=== PATIENT | male | born 1935 | race Caucasian/White ===

== ENCOUNTER 2019-07-15 06:14 | Day surgery (SDC) | payer MEDICARE, OTHER ==
[2019-07-15] MEDS ORDERED: Sodium Chloride 0.9% 1,000 ML IV SCH (07:00)
[2019-07-15] MEDS ORDERED: Propofol 200 MG/20 ML SDV ONE (07:27)
[2019-07-15 08:43] VITALS: BP 150/84; PULSE 62
--- NOTE | 2019-07-15 13:16 | PROC ---
DATE OF PROCEDURE: SURGEON: Umang Garcia MD INDICATION: Mauro is an 83-year-old male who came to the office, said he was having difficult time swallowing, food would stick in his throat and have to wait. He also had mild pain in the epigastric area. The problem has been for several months, more severe in the last 2 to 3 months. He has had no weight loss. The risks and benefits were explained to the patient and he was taken to OR. PROCEDURE IN DETAIL: Anesthesia was given by nurse cmm technician. During the procedure, we used 100 mg of propofol. The Olympus 180 scope was used, was placed into the pharynx and the esophagus without difficulty, and advanced under direct vision. I immediately noted that the distal esophagus had significant esophageal erythema. Pictures were taken of the area. The tube was then advanced into the body of the stomach. The pylorus was identified and advanced into the first and second parts of the duodenum. Upon retraction of the tube, noted no duodenal erythema. The tube was brought back into the stomach. In the antral area, noted mild gastric mucosal erythema. The greater and lesser curvatures showed small erythematous areas. The tube was then brought back and retroflexed into the fundus, which was unremarkable. The GE junction was identified and then noted the esophageal distal irritation. Two biopsies were done without difficulty. There was no esophageal stenosis evident. The remainder of the esophagus was unremarkable. The vocal cords moved symmetrically and no obvious pathology noted. PREOPERATIVE DIAGNOSIS: Dysphagia. POSTOPERATIVE DIAGNOSES: 1. Distal esophageal ulcerations. 2. Gastritis in the antral area. 3. Body of the stomach noted small ulcerations pathology report pending.. PLAN: We will put him on Protonix 40 mg twice daily and then to re-scope him in 30 days. A dilatation was not done as it was not indicated. Umang Garcia MD /[id number] [facility]
== END 2019-07-15 09:01 | disposition home or self-care (01) ==
LOC: JP.SDS 06:14
PROVIDERS: ATTEND Internal Medicine
DX: K22.10 Ulcer of esophagus without bleeding (principal); K29.70 Gastritis, unspecified, without bleeding; K25.9 Gastric ulcer, unspecified as acute or chronic, without hemorrhage or perforation; K21.9 Gastro-esophageal reflux disease without esophagitis
CPT/HCPCS: 43239; J2704; J7030

== ENCOUNTER 2019-08-21 06:24 | Day surgery (SDC) | payer MEDICARE, OTHER ==
[2019-08-21] MEDS ORDERED: Lactated Ringers 1,000 ML IV SCH (07:00)
[2019-08-21] MEDS ORDERED: Propofol 200 MG/20 ML SDV ONE (07:13)
[2019-08-21] MEDS ORDERED: fentaNYL 100 MCG/2 ML SDV ONE (07:13)
[2019-08-21 09:00] VITALS: BP 163/75; PULSE 62
--- NOTE | 2019-08-21 14:39 | PROC ---
DATE OF PROCEDURE: SURGEON: Umang Garcia MD INDICATION: Mauro is an 83-year-old male, who has had difficulty swallowing food, it gets stuck and then has to wait until it clears. It has been a progressive problem over the last three months. We did do an EGD one month ago and found significant erythema in the distal esophagus. He was placed on Protonix and said he had improved slightly, but still having trouble swallowing. The risks and benefits were explained for esophageal gastroduodenoscopy. DESCRIPTION OF PROCEDURE: The Olympus 180 scope was used, was placed into the pharynx, into the esophagus without difficulty and advanced under direct vision. Immediately, in the distal esophagus, noted retained food particles and then advanced into the stomach. The pylorus was identified and the tube was advanced into the small intestine, in the first and second part of the small intestine. Upon retraction of the tube, we noted no duodenal erythema. The tube was brought back into the stomach. The antrum, greater and lesser curvatures, and fundus after retroflexion of the tube, revealed no acute pathology except for a polyp, which appeared benign, in the antral area. The tube was brought back into the esophagus, noted significant erythema, noted also retained food particles in that area. Biopsies were done of three areas, and the tissue was very friable. We then went back into the stomach, put through a Savary dilator guidewire and air was withdrawn. The tube was then removed. Upon retraction of the tube, we looked at the esophagus as well. We then placed the Savary dilator over the wire and advanced into the stomach. This was left in place for one minute and then removed the dilator and the guidewire. The patient tolerated the procedure well. Biopsies are pending. PREOPERATIVE DIAGNOSIS: Dysphagia, erosions. POSTOPERATIVE DIAGNOSES: 1. Esophageal stenosis, dilated to 60-Domin[place]. 2. Esophageal erythema with erosions. Biopsies pending. Pictures were also taken of the area. Umang Garcia MD /[id number] [facility]
== END 2019-08-21 09:05 | disposition home or self-care (01) ==
LOC: JP.SDS 06:24
PROVIDERS: ATTEND Internal Medicine
DX: K22.2 Esophageal obstruction (principal); K22.10 Ulcer of esophagus without bleeding; K21.0 Gastro-esophageal reflux disease with esophagitis; E78.5 Hyperlipidemia, unspecified; I10 Essential (primary) hypertension
CPT/HCPCS: 43239; 43248; J2704; J3010; J7120; 88305